=== PATIENT | female | born 1955 | race American Indian/Alaskan Native ===

== ENCOUNTER 2018-11-14 08:29 | Day surgery (SDC) | payer MEDICARE ==
[~2018-11-14 08:29] MED LIST: NACL 0.9% 1000 ML 1,000 ML IV SCH
[2018-11-14] MEDS ORDERED: WATER FOR IRRIG STERILE IR ONE (09:42)
[2018-11-14] MEDS ORDERED: WATER FOR IRRIG STERILE ONE (09:43)
--- NOTE | 2018-11-14 09:44 | Anesthesia Consultation ---
Anesthesia Consult and Med Hx Date of service: 11/14/18 - Airway Anesthetic Teeth Evaluation: Dentures ROM Head & Neck: Adequate Mental/Hyoid Distance: Adequate Mallampati Class: Class II Intubation Access Assessment: Good - Pulmonary Exam CTA: Yes - Cardiac Exam Cardiac Exam: RRR - Pre-Operative Health Status ASA Pre-Surgery Classification: ASA2 Proposed Anesthetic Plan: MAC - Pulmonary Hx Smoking: No Hx Asthma: No Hx Respiratory Symptoms: No SOB: No COPD: No Hx Pneumonia: No Hx Sleep Apnea: No - Cardiovascular System Hx Hypertension: Yes Hx Coronary Artery Disease: No Hx Heart Attack/AMI: No Hx Angina: No Hx Percutaneous Transluminal Coronary Angioplasty (PTCA): No Hx Cardia Arrhythmia: No Hx Pacemaker: No Hx Internal Defibrillator: No Hx Valvular Heart Disease: No Hx Heart Murmur: No Hx Peripheral Vascular Disease: No - Central Nervous System Hx Neuromuscular Disorder: No Hx Seizures: Yes CVA: No Hx Back Pain: No Hx Psychiatric Problems: No - Gastrointestinal Hx Ulcer: No Hx Gastroesophageal Reflux Disease: No - Endocrine Hx Renal Disease: No Hx End Stage Renal Disease: No Hx Cirrhosis: No Hx Liver Disease: No Hx Insulin Dependent Diabetes: No Hx Non-Insulin Dependent Diabetes: No Hx Thyroid Disease: No Hx Hypothyroidism: No Hx Hyperthyroidism: No - Hematic Hx Anemia: No Hx Sickle Cell Disease: No - Other Systems Hx Alcohol Use: No Hx Substance Use: No Hx Cancer: Yes (colon) Hx Obesity: Yes
--- NOTE | 2018-11-14 09:44 | Anesthesia Day of Surgery ---
Anesthesia Day of Surgery - Day of Surgery Patient Examined: Yes Patient H&P Reviewed: Yes Patient is NPO: Yes
[2018-11-14] MEDS ORDERED: XYLOCAINE 2% INFILTRATI ONE (10:16)
[2018-11-14] MEDS ORDERED: SUBLIMAZE ONE (10:17)
[2018-11-14] MEDS ORDERED: DIPRIVAN 10 MG/ML IV ONE ×2 (10:17→10:18)
--- NOTE | 2018-11-14 12:00 | Discharge Summary ---
Short Stay Discharge Plan Activity: advance as tolerated Weight Bearing Status: Weight Bear as Tolerated Diet: regular Additional Instructions: Post Sedation D/C Instructions When you return home you may resume your regular diet unless otherwise directed. -Go directly home from the hospital and rest quietly. You may resume normal activities tomorrow. -Do NOT drive, return to work, operate any machinery or make any important personal or business decisions today. -Do NOT drink any alcohol or take nerve or sleeping drugs. They add to the effects of the medicine still present in your body. -NO ASPIRIN OR NSAIDS NEXT 3-5 DAYS -FOLLOW UP WITH DR. RUBY IN THE NEXT 1-2 WEEKS FOR RESULTS OF TODAY'S VISIT AND BIOPSY Follow up with: JOSEPH GOEL MD [Primary Care Provider] - 7 Days
--- NOTE | 2018-11-14 12:00 | Operative Report ---
Operative Report Operative Report: Operative Report: Date of procedure: 11/14/2018 Procedure: Esophagogastroduodenoscopy with multiple mucosal biopsies. Attending physician: Nirav Hinton MD Asset Protection Agent: Nirav Hinton MD Indication: Patient is a 63 -year-old female who presented with a history of recurrent epigastric pain. An upper endoscopy is done to assess patient, so that treatment may be directed based on the findings. Consent: Informed consent was obtained after advising the patient and family regarding nature of this procedure, its indications, potential benefits as well as possible complications including but not limited to bleeding perforation and adverse reaction to medication, infection as well as other cardiopulmonary complications. An informed written and verbal consent was then obtained after due opportunity was provided for questions and answers. Monitoring: Patient was monitored continuously with pulse oximetry and electrocardiographic recordings as well as blood pressure recordings. Vital signs remained stable throughout this procedure with no untoward events. Preoperative assessment: Patient was assessed immediately prior to this procedure for capacity to tolerate monitored anesthesia care and moderate sedation as well as general anesthesia. Patient's ASA classification is 3, Mallampati class is 2, Hyomental distance is 3. Instrument: Olympus video endoscope: [id number] [id number] Medications: Propofol given intravenously in divided doses. For details please refer to anesthesia records. Description of procedure: Patient was placed in the left lateral decubitus position after achieving sedation, the endoscope was introduced into the esophagus under direct vision. It was then advanced beyond the esophagus into the stomach and then beyond the stomach into the second portion of the duodenum. It was subsequently withdrawn with careful inspection of all mucosal surfaces with the following findings. Findings: The esophagus was normal. The Z line was irregular at 37 cm. Patient had multiple gastric antral erosions with erythema seen. Gastric antral biopsies were obtained for histopathology. The duodenum was normal to the second portion. The endoscope was removed after the examination Impression irregular Z line at 37 cm. Gastric antral erythema with erosions. Plan: Continue treatment with proton pump inhibitors. Follow pathology report and direct additional treatment based on the pathology report.
[2018-11-14 12:26] VITALS: BP 158/79
--- NOTE | 2018-11-14 16:37 | Operative Report ---
Operative Report Operative Report: Date of procedure: 10/08/2017 Procedure: Flexible Sigmoidoscopy with guided balloon dilation of colonic stric ture. Attending physician: Nirav Hinton MD Solar Development Engineer: Nirav Hinton MD Indication: Patient is a 63-year-old female who presents with constipation and lower abdominal pain. She has a past history of colon cancer with a low-lying colon cancer that was resected and patient has had recurrent stricturing at the anastomosis. She has been dilated multiple times. She had been referred for surgical revision of the anastomosis and reportedly she had studies that suggested that she may not have a tight stricture. She presents recurrently now with progressive constipation and left lower abdominal pain. This sigmoidoscopy serves to evaluate patient so that treatment may be directed based on the findings. Consent: Informed consent was obtained after advising the patient and family regarding nature of this procedure, its indications, potential benefits as well as possible complications including but not limited to bleeding perforation and adverse reaction to medication, infection as well as other cardiopulmonary complications. An informed written and verbal consent was then obtained after due opportunity was provided for questions and answers. Monitoring: Patient was monitored continuously with pulse oximetry and electrocardiographic recordings as well as blood pressure recordings. Vital signs remained stable throughout this procedure with no untoward events. Preoperative assessment: Patient was assessed immediately prior to this procedure for capacity to tolerate monitored anesthesia care and moderate sedation as well as general anesthesia. Patient's ASA classification is 3, Mallampati class is 2, Hyomental distance is 3. Instrument: Olympus video endoscope Medications: Propofol given intravenously in divided doses. For details please refer to anesthesia records. Description of procedure: Patient was placed in the left lateral decubitus position after achieving sedation, a digital rectal examination was performed following which the endoscope was introduced into the anal verge and advanced to the colonic stricture at 15 cm. At this point, patient was noted to have surgical jakub around the anastomosis. The endoscope could not pass through the stricture. A colonic balloon with a guidewire was then passed through stricture. In this, the stricture was dilated sequentially to 10 mm. A limitation to dilation appears to have been imposed by the presence of jakub at the surgical anastomosis which appeared very tight and impaired the ability to dilate the stricture. Despite dilating the stricture to 10 mm for 2 minutes, the endoscope still could not traverse the stricture. She however was noted to be dilated from about 3 mm up to about 6-7 mm.. The endoscope was subsequently withdrawn . Patient tolerated this procedure well and was subsequently taken to the recovery room. The following findings were noted. Findings: Tight stricture at 15 cm into the sigmoid colon. Patient status post dilation to 6-7 mm. Patient was noted to have internal hemorrhoids on the retroflexed view of the anal verge. Impression: Tight colonic stricture at 15 cm in the sigmoid colon. Internal hemorrhoids. Plan: High-fiber diet. Maintain patient on stool softeners Patient will need to be referred surgical revision..
== END 2018-11-14 08:30 | disposition home or self-care (01) ==
LOC: GIO 08:29
PROVIDERS: ATTEND Internal Medicine Gastroenterology
DX: K29.50 Unspecified chronic gastritis without bleeding (principal); K56.699 Other intestinal obstruction unspecified as to partial versus complete obstruction; K64.8 Other hemorrhoids; D64.9 Anemia, unspecified; B96.81 Helicobacter pylori [H. pylori] as the cause of diseases classified elsewhere; G43.909 Migraine, unspecified, not intractable, without status migrainosus; I10 Essential (primary) hypertension; F41.9 Anxiety disorder, unspecified; E66.9 Obesity, unspecified; Z85.028 Personal history of other malignant neoplasm of stomach; Z91.041 Radiographic dye allergy status; Z88.8 Allergy status to other drugs, medicaments and biological substances; Z79.01 Long term (current) use of anticoagulants; Z79.899 Other long term (current) drug therapy; Z85.038 Personal history of other malignant neoplasm of large intestine; Z98.890 Other specified postprocedural states; Z68.36 Body mass index [BMI] 36.0-36.9, adult
CPT/HCPCS: 43239; 45340; 88305; 88342; C1726; J2704; J3010; J7030